=== PATIENT | male | born 1965 | race American Indian/Alaskan Native ===

== ENCOUNTER 2018-01-27 09:28 | Outpatient (CLI) | payer OTHER ==
--- NOTE | 2018-01-27 22:10 | XRay Report ---
FINAL REPORT PROCEDURE: Pelvis. Left hip. TECHNIQUE: AP pelvis. AP and frogleg lateral views of the left hip. HISTORY: DISABILITY EXAM, INJURY HIP COMPARISON: No prior studies are available for comparison. FINDINGS: Pelvis: The pelvis appears intact. The sacroiliac joints and symphysis pubis appear normal. Both hip joints appear normal. The soft tissues are unremarkable. Left hip: The bones appear intact without fracture or dislocation. The hip joint appears normal. The soft tissues are unremarkable. IMPRESSION: Normal studies.
--- NOTE | 2018-01-27 22:19 | XRay Report ---
FINAL REPORT PROCEDURE: Lumbar spine. TECHNIQUE: Three views. HISTORY: DISABILITY EXAM, INJURY SPINE BACK COMPARISON: No prior studies are available for comparison. FINDINGS: The lumbar vertebrae have normal height and alignment. There are no fractures. There is no spondylolisthesis. The disc spaces are well maintained. There are small vertebral body osteophytes at L4 and L5. The sacrum and sacroiliac joints appear normal. IMPRESSION: Minimal degenerative disease.
--- NOTE | 2018-01-27 22:21 | XRay Report ---
FINAL REPORT PROCEDURE: Right and left hands. TECHNIQUE: AP and lateral views of each hand. HISTORY: DISABILITY EXAM, INJURIES HANDS COMPARISON: No prior studies are available for comparison. FINDINGS: Right hand: The bones appear intact without fracture or dislocation. The joint spaces appear normal. The soft tissues are unremarkable. Left hand: The bones appear intact without fracture or dislocation. The joint spaces appear normal. The soft tissues are unremarkable. IMPRESSION: Normal studies of the right and left hands.
== END 2018-01-27 09:29 | disposition home or self-care (01) ==
LOC: XRAY 09:28
PROVIDERS: ATTEND Internal Medicine
DX: M25.552 Pain in left hip (principal); Z02.71 Encounter for disability determination; M51.36 Other intervertebral disc degeneration, lumbar region
CPT/HCPCS: 72100